=== PATIENT | female | born 1965 | race Caucasian/White ===

== ENCOUNTER → 2025-07-05 | Outpatient (CLI) | payer MEDICARE, MEDICAID ==
[~2025-07-05] MED LIST: BACT800T; CELE20TA OR; DEPAKOTE ER PO; METH1TAB40; TRAZ50TA OR; TYLENOL #3; ZYPR5TAB OR
== END ==
LOC: M WUC 12:46
PROVIDERS: ATTEND Student in an Organized Health Care Education/Training Program
DX: J44.9 Chronic obstructive pulmonary disease, unspecified (principal)

== ENCOUNTER → 2025-07-12 | Outpatient (REF) | payer MEDICARE, MEDICAID ==
[~2025-07-12] MED LIST changes: +CLEO150C PO; +CLIN150C17 PO; +IBUP1TAB7 PO
[2025-07-12 13:36] LABS: CREATININE, URINE 144.1 MG/DL; MALB URINE SIEMENS 10.0 MG/L; MAU/CREAT RATIO 6.9 MCG/MG (0.0-30.0)
[2025-07-12 15:00] LABS: BASO # 0.0 10^3/uL (0.0-0.2); BASO % 0.4 % (0.0-1.0); EOS # 0.1 10^3/uL (0.0-0.5); EOS % 1.3 % (0.0-3.0); LYMPH # 1.5 10^3/uL (1.5-5.0); LYMPH % 20.1 % (24.0-44.0); MONO # 0.4 10^3/uL (0.0-0.8); MONO % 4.9 % (2.0-8.0); NEUTROPHILS # 5.5 10^3/uL (1.5-8.5); NEUTROPHILS % 72.9 % (36.0-66.0); PLATELET COUNT, AUTOMATED 267 10^3/uL (150-450)
[2025-07-12 15:23] LABS: ESTIMATED AVERAGE GLUCOSE 94.0 MG/DL (60-110)
[2025-07-12 15:30] LABS: ALT/SGPT 17.0 U/L (7.0-40); AST/SGOT 22.0 U/L (<34); CALCIUM LEVEL 9.1 MG/DL (8.3-10.6); CARBON DIOXIDE LEVEL 30.0 MMOL/L (20-31); CHLORIDE LEVEL 104.0 MMOL/L (98-107); CHOLESTEROL LEVEL 235.0 MG/DL (<200); CHOLESTEROL RISK RATIO 3.44 (<5); CREATININE FOR GFR 0.95 MG/DL (0.55-1.30); GLOMERULAR FILTRATION RATE 68.2 (>45); LDL CHOLESTEROL 147.8 MG/DL (<100); NON-HDL-C 166.8 MG/DL; POTASSIUM SERUM 4.3 MMOL/L (3.5-5.1); SODIUM LEVEL 142.0 MMOL/L (136-145); TRIGLYCERIDES LEVEL 95.0 MG/DL (<150)
== END ==
LOC: M LAB REF 12:00
PROVIDERS: ATTEND Student in an Organized Health Care Education/Training Program
DX: Z00.00 Encounter for general adult medical examination without abnormal findings (principal); Z79.899 Other long term (current) drug therapy

== ENCOUNTER 2025-07-23 11:45 | Emergency (ER) | payer MEDICARE, MEDICAID ==
[~2025-07-23] VITALS: Ht 165.1 cm; Wt 69.2 kg
[~2025-07-23 11:45] MED LIST changes: -CLEO150C PO; -CLIN150C17 PO; -IBUP1TAB7 PO
[2025-07-23] MEDS ORDERED: IBUP1TAB7 PO (12:07)
[2025-07-23] MEDS: ACETAMINOPHEN *IV* 1,000 MG in IV 1 EA IV ONE (12:41)
[2025-07-23 12:49] LABS: BASO # 0.0 10^3/uL (0.0-0.2); BASO % 0.1 % (0.0-1.0); EOS # 0.0 10^3/uL (0.0-0.5); EOS % 0.2 % (0.0-3.0); LYMPH # 1.1 10^3/uL (1.5-5.0); LYMPH % 8.1 % (24.0-44.0); MONO # 0.8 10^3/uL (0.0-0.8); MONO % 6.0 % (2.0-8.0); NEUTROPHILS # 11.7 10^3/uL (1.5-8.5); NEUTROPHILS % 85.3 % (36.0-66.0); PLATELET COUNT, AUTOMATED 207 10^3/uL (150-450)
[2025-07-23] MEDS: CLINDAMYCIN 900 MG in IV 1 EA IV SCH (13:07)
[2025-07-23 13:15] LABS: ALT/SGPT 13.0 U/L (7.0-40); AST/SGOT 19.0 U/L (<34); CALCIUM LEVEL 8.9 MG/DL (8.3-10.6); CARBON DIOXIDE LEVEL 25.0 MMOL/L (20-31); CHLORIDE LEVEL 104.0 MMOL/L (98-107); CREATININE FOR GFR 1.2 MG/DL (0.55-1.30); GLOMERULAR FILTRATION RATE 51.5 (>45); POTASSIUM SERUM 3.7 MMOL/L (3.5-5.1); SODIUM LEVEL 139.0 MMOL/L (136-145)
[2025-07-23] MEDS ORDERED: CLIN150C17 PO (13:35)
[2025-07-23 13:47] VITALS: BP 110/71; TEMP 97.7; O2SAT 99
[2025-07-23] MEDS ORDERED: CLEO150C PO (15:29)
== END 2025-07-23 13:48 | disposition home or self-care (01) ==
LOC: M ED 12:42
DX: K04.7 Periapical abscess without sinus (principal); I10 Essential (primary) hypertension; N28.9 Disorder of kidney and ureter, unspecified; Z79.899 Other long term (current) drug therapy
CPT/HCPCS: 80053; 85025; 96374; 96375; 99284; J0131; J0737

== ENCOUNTER 2025-07-26 16:30 | Emergency (ER) | payer MEDICARE, MEDICAID ==
[~2025-07-26] VITALS: Ht 165.1 cm; Wt 71.8 kg
[~2025-07-26 16:30] MED LIST changes: +CLEO150C PO; +CLIN150C17 PO; +IBUP1TAB7 PO
[2025-07-26 16:33] VITALS: TEMP 98.2
[2025-07-26 17:27] LABS: BASO # 0.0 10^3/uL (0.0-0.2); BASO % 0.3 % (0.0-1.0); EOS # 0.1 10^3/uL (0.0-0.5); EOS % 1.5 % (0.0-3.0); LYMPH # 1.4 10^3/uL (1.5-5.0); LYMPH % 15.5 % (24.0-44.0); MONO # 0.4 10^3/uL (0.0-0.8); MONO % 4.1 % (2.0-8.0); NEUTROPHILS # 6.8 10^3/uL (1.5-8.5); NEUTROPHILS % 78.4 % (36.0-66.0); PLATELET COUNT, AUTOMATED 305 10^3/uL (150-450)
[2025-07-26 17:28] LABS: C REACTIVE PROTEIN QUANTITATIV 3.17 MG/DL (<1.0)
[2025-07-26 17:29] LABS: CALCIUM LEVEL 9.6 MG/DL (8.3-10.6); CARBON DIOXIDE LEVEL 31.0 MMOL/L (20-31); CHLORIDE LEVEL 105.0 MMOL/L (98-107); CREATININE FOR GFR 0.93 MG/DL (0.55-1.30); GLOMERULAR FILTRATION RATE 69.9 (>45); POTASSIUM SERUM 4.3 MMOL/L (3.5-5.1); SODIUM LEVEL 142.0 MMOL/L (136-145)
[2025-07-26] MEDS ORDERED: ISOVUE-370 76% 100 ML VIAL As Ordered ONE (20:12)
[2025-07-26] MEDS: ACETAMINOPHEN *IV* 1,000 MG in IV 1 EA IV ONE (20:28)
[2025-07-26] MEDS: KETOROLAC 30 MG/ML 1 ML VIAL IV ONE (20:28)
[2025-07-26] MEDS ORDERED: CLINDAMYCIN 600 MG in IV 1 EA IV ONE (21:10)
[2025-07-26] MEDS ORDERED: AMOX875T2 PO (21:38)
[2025-07-26] MEDS: MORPHINE 4 MG/ML 1 ML VIAL IV PRN (22:25)
[2025-07-26] MEDS: AMPICILLIN SOD/SULBACTAM SOD 3 GM in DEXTROSE 5% (D5W) MINI-BAG PLU 100 ML IV ONE (22:49)
[2025-07-26] MEDS ORDERED: HYDR-3713 PO (23:07)
[2025-07-26 23:44] VITALS: BP 100/60; O2SAT 94
== END 2025-07-26 23:29 | disposition home or self-care (01) ==
LOC: M ED 16:30
DX: K04.7 Periapical abscess without sinus (principal); S02.31XA Fracture of orbital floor, right side, initial encounter for closed fracture; Y92.9 Unspecified place or not applicable; Y93.9 Activity, unspecified; Y99.9 Unspecified external cause status; I10 Essential (primary) hypertension; Z79.1 Long term (current) use of non-steroidal anti-inflammatories (NSAID); Z79.2 Long term (current) use of antibiotics; Z79.899 Other long term (current) drug therapy
CPT/HCPCS: 70487; 80048; 83605; 85025; 85652; 86140; 87040; 96365; 96366; 96375; 99284; J0134; J0295; J1885; J2765; Q9967